=== PATIENT | female | born 1990 | race African-American/Black ===

== ENCOUNTER 2016-11-29 12:03 | Emergency (ER) | payer OTHER ==
[~2016-11-29] VITALS: Ht 154.9 cm; Wt 104.3 kg
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
[~2016-11-29 12:03] MED LIST: ALBUTEROL17 GM INH; BENZONATATE PO; PROZAC PO; PULMICORT90 MCG/AER INH
== END 2016-11-29 16:00 | disposition home or self-care (01) ==
LOC: CED 12:03
DX: S09.90XA Unspecified injury of head, initial encounter (principal); S01.01XA Laceration without foreign body of scalp, initial encounter; J45.909 Unspecified asthma, uncomplicated; F41.9 Anxiety disorder, unspecified; F17.210 Nicotine dependence, cigarettes, uncomplicated; Z23 Encounter for immunization; W22.8XXA Striking against or struck by other objects, initial encounter; Y92.009 Unspecified place in unspecified non-institutional (private) residence as the place of occurrence of the external cause
CPT/HCPCS: 12011; 70450; 90471; 90715; 99284